=== PATIENT | male | born 1970 | race Caucasian/White ===

== ENCOUNTER 2020-10-19 13:56 | Inpatient (IN) | payer BC ==
[2020-10-19] MEDS ORDERED: Acetaminophen 325 MG Tab PO PRN (17:52)
[2020-10-19] MEDS ORDERED: Acetaminophen/oxyCODONE 325-5 MG Tab PO PRN (18:04)
[2020-10-19] MEDS ORDERED: Meloxicam 7.5 MG Tab PO PRN (18:04)
[2020-10-19] MEDS ORDERED: Cyclobenzaprine 10 MG Tab PO PRN (18:04)
[2020-10-19] MEDS ORDERED: Magnesium Hydroxide 400 MG/5 ML Susp 30 ML Cup PO PRN (18:16)
--- NOTE | 2020-10-19 18:17 | PCM.HP.2 ---
H&P History of Present Illness - General Date of Service: 10/19/20 Admit Problem/Dx: Admission Diagnosis/Problem Admission Diagnosis/Problem History of arthroplasty of left knee Source of Information: Patient History Limitations: Reports: No Limitations - History of Present Illness Initial Comments - Free Text/Narative: Luís is a 49 year old male who is admitted swing bed after a debridement of his knee. Patient had a total knee replacement on the and was discharged home the next day. Patient relates was doing well the first 2 days and then he started having extreme pain in his knee. Was in and out of the house due to pain and states noted that the bandage on his knee had become "bloody". Returned back to [place] and had a large hematoma debrided. Transferred here for swing bed for PT due to his impulsiveness and noncompliance. Patient states pain is much better after the debridement. Denies nausea/vomiting. Has not had BM since Thursday. No abdominal pain. Is ambulating with walker with 50% weight bearing. Duration of Symptoms: Reports: Day(s): Location: Reports: Lower Extremity, Left Quality: Reports: Ache Severity: Mild Improves with: Reports: Medication Left Knee Pain Score (Numeric/FACES): 1 - Related Data Allergies/Adverse Reactions: Allergies Allergy/AdvReac Type Severity Reaction Status Date / Time No Known Allergies Allergy Verified 10/19/20 15:26 Home Medications: Home Meds Lisinopril/Hydrochlorothiazide [Lisinopril-Hctz 20-25 mg Tab] 1 tab PO DAILY 09/13/20 [History] Meloxicam 7.5 mg PO BID PRN 09/13/20 [History] Metoprolol Succinate [Toprol XL 100mg] 100 mg PO DAILY 09/13/20 [History] Venlafaxine [Venlafaxine HCl ER] 300 mg PO DAILY 09/13/20 [History] atorvaSTATin Calcium [Atorvastatin Calcium] 20 mg PO DAILY 09/13/20 [History] lisinopriL [Lisinopril] 20 mg PO DAILY 09/13/20 [History] Aspirin [Aspirin EC] 81 mg PO DAILY 10/19/20 [History] Cyclobenzaprine [Flexeril] 10 mg PO TID PRN 10/19/20 [History] Docusate Sodium [Colace] 100 mg PO BID 10/19/20 [History] Sulfamethoxazole/Trimethoprim [Bactrim Ds Tablet] 1 tab PO BID 10/19/20 [History] oxyCODONE HCl/Acetaminophen [Oxycodone-Acetaminophen 5-325] 1 - 2 tab PO Q4HR PRN 10/19/20 [History] Past Medical History Cardiovascular History: Reports: High Cholesterol, Hypertension Musculoskeletal History: Reports: Arthritis, Osteoarthritis, Other (See Below) Other Musculoskeletal History: carpal tunnel syndrome Neurological History: Reports: CVA, TIA Psychiatric History: Reports: Anxiety, Depression - Infectious Disease History Infectious Disease History: Reports: None - Past Surgical History Musculoskeletal Surgical History: Reports: Other (See Below) Other Musculoskeletal Surgeries/Procedures:: LTKA with return to OR d/t internal suture dehiscence, elbow surgery, wrist surgery, finger amputation Social & Family History - Tobacco Use Tobacco Use Status *Q: Current Every Day Tobacco User H&P Review of Systems - Review of Systems: Review Of Systems: See Below General: Reports: Weakness. Denies: Fever, Chills, Malaise, Fatigue HEENT: Reports: No Symptoms Pulmonary: Denies: Shortness of Breath, Cough Cardiovascular: Denies: Chest Pain, Edema, Lightheadedness Gastrointestinal: Reports: Constipation. Denies: Abdominal Pain, Nausea, Vomiting Genitourinary: Reports: No Symptoms Musculoskeletal: Reports: Leg Pain, Joint Pain Skin: Reports: Other (incision) Psychiatric: Reports: No Symptoms Neurological: Reports: No Symptoms Exam - Exam Exam: See Below - Vital Signs Vital Signs: Last Vital Signs Temp 98.8 F 10/19/20 16:22 Pulse 87 10/19/20 16:22 Resp 16 10/19/20 16:22 BP 132/89 10/19/20 16:22 Pulse Ox 97 10/19/20 16:22 Weight: 227 lb 6.4 oz - Exam General: Alert, Oriented HEENT: Conjunctiva Clear, Mucosa Moist & [place], Posterior Pharynx Clear Neck: Supple Lungs: Clear to Auscultation, Normal Respiratory Effort Cardiovascular: Regular Rate, Regular Rhythm GI/Abdominal Exam: Normal Bowel Sounds, Soft, Non-Tender Extremities: Other (Knee wrapped with scott bandage and ice. Will evaluate incision around dressing change) Skin: Incision Neuro Extensive - Mental Status: Alert, Oriented x3 Psychiatric: Alert Sepsis Event Note - Evaluation Sepsis Screening Result: No Definite Risk - Focused Exam Vital Signs: Vital Signs Temp Pulse Resp BP Pulse Ox 10/19/20 16:22 98.8 F 87 16 132/89 97 - Problem List (1) S/P total knee arthroplasty SNOMED Code(s): 2209781233744, 166354429, 0613385219933 ICD Code: Z96.659 - PRESENCE OF UNSPECIFIED ARTIFICIAL KNEE JOINT Status: Acute Priority: High Current Visit: Yes Qualifiers: Laterality: left Qualified Code(s): Z96.652 - Presence of left artificial knee joint (2) Status post debridement SNOMED Code(s): 156766864, 862105965 ICD Code: Z98.890 - OTHER SPECIFIED POSTPROCEDURAL STATES Status: Acute Priority: High Current Visit: Yes Problem List Initiated/Reviewed/Updated: Yes Orders Last 24hrs: Active Orders 24 hr Category Date Time Status Patient Status [ADT] Routine ADT 10/19/20 17:52 Ordered Oxygen Therapy [RC] PRN Care 10/19/20 17:52 Ordered Up With Assistance [RC] ASDIRECTED Care 10/19/20 17:52 Ordered Vital Signs [RC] Q12HR Care 10/19/20 17:52 Ordered Wound Care [RC] DAILY Care 10/19/20 17:52 Ordered PT Evaluation and Treatment [CONS] Routine Cons 10/19/20 17:52 Ordered Regular Diet [DIET] Diet 10/20/20 Dinner Ordered Acetaminophen [TylenoL] Med 10/19/20 17:52 Ordered 650 mg PO Q4H PRN Acetaminophen/oxyCODONE [Percocet 325-5 MG] Med 10/19/20 18:04 Ordered 1 - 2 tab PO Q4HR PRN Aspirin [Halfprin] Med 10/20/20 08:00 Ordered 81 mg PO DAILY Cyclobenzaprine [Flexeril] Med 10/19/20 18:04 Ordered 10 mg PO TID PRN Docusate Sodium [Colace] Med 10/19/20 20:00 Ordered 100 mg PO BID Lisinopril/Hydrochlorothiazide [Lisinopril-Hctz 20-25 Med 10/20/20 08:00 Ordered mg Tab] 1 tab PO DAILY Magnesium Hydroxide [Milk of Magnesia] Med 10/19/20 18:16 Ordered 30 ml PO BEDTIME PRN Meloxicam [Mobic] Med 10/19/20 18:04 Ordered 7.5 mg PO BID PRN Metoprolol Succinate [Toprol XL] Med 10/20/20 08:00 Ordered 100 mg PO DAILY Sulfamethoxazole/Trimethoprim [Septra DS] Med 10/19/20 20:00 Ordered 1 tab PO BID Venlafaxine [Venlafaxine HCl ER] Med 10/20/20 08:00 Ordered 300 mg PO DAILY atorvaSTATin [Lipitor] Med 10/20/20 08:00 Ordered 20 mg PO DAILY lisinopriL [Prinivil] Med 10/20/20 08:00 Ordered 20 mg PO DAILY Resuscitation Status Routine Resus Stat 10/19/20 17:52 Ordered Medication Orders Acetaminophen (Acetaminophen 325 Mg Tab) 650 mg PO Q4H PRN PRN Reason: Pain (Mild 1-3)/fever Aspirin (Aspirin 81 Mg Tab.Ec) 81 mg PO DAILY [facility] Atorvastatin Calcium (Atorvastatin 20 Mg Tab) 20 mg PO DAILY [facility] Cyclobenzaprine HCl (Cyclobenzaprine 10 Mg Tab) 10 mg PO TID PRN PRN Reason: Spasms Docusate Sodium (Docusate Sodium 100 Mg Cap) 100 mg PO BID [facility] Lisinopril (Lisinopril 20 Mg Tab) 20 mg PO DAILY [facility] Meloxicam (Meloxicam 7.5 Mg Tab) 7.5 mg PO BID PRN PRN Reason: Pain Metoprolol Succinate (Metoprolol Succinate 100 Mg Tab.Er) 100 mg PO DAILY [facility] Non-Formulary Medication (Lisinopril/Hydrochlorothiazide [Lisinopril-Hctz 20-25 Mg Tab]) 1 tab PO DAILY [facility] Non-Formulary Medication (Venlafaxine [Venlafaxine Hcl Er]) 300 mg PO DAILY [facility] Oxycodone/Acetaminophen (Acetaminophen/Oxycodone 325-5 Mg Tab) 1 - 2 tab PO Q4HR PRN PRN Reason: Pain Trimethoprim/Sulfamethoxazole (Sulfamethoxazole/Trimethoprim 800-160 Mg Tab) 1 tab PO BID [facility] Assessment/Plan Comment:: S/P left knee arthroplasty S/P left knee debridement Admitted to swing bed for physical therapy. - Mortality Measure Prognosis:: Good
[2020-10-19] MEDS: Sulfamethoxazole/Trimethoprim 800-160 MG Tab PO SCH (19:33)
[2020-10-19] MEDS: Docusate Sodium 100 MG Cap PO SCH (19:33)
[2020-10-20] MEDS: Hydrochlorothiazide 25 MG Tab PO SCH (07:46)
[2020-10-20] MEDS: atorvaSTATin 20 MG Tab PO SCH (07:46)
[2020-10-20] MEDS: Docusate Sodium 100 MG Cap PO SCH ×2 (07:46→19:44)
[2020-10-20] MEDS: Metoprolol Succinate 100 MG Tab.ER PO SCH (07:46)
[2020-10-20] MEDS: Sulfamethoxazole/Trimethoprim 800-160 MG Tab PO SCH ×2 (07:47→19:44)
[2020-10-20] MEDS: Aspirin 81 MG Tab.EC PO SCH (07:47)
[2020-10-20] MEDS: Lisinopril 20 MG Tab PO SCH (07:47)
[2020-10-20] MEDS: Venlafaxine 75 MG Cap.ER PO SCH (07:48)
[2020-10-20] MEDS ORDERED: Temazepam 15 MG Cap PO PRN (09:30)
[2020-10-21] MEDS: Sulfamethoxazole/Trimethoprim 800-160 MG Tab PO SCH ×2 (07:45→20:44)
[2020-10-21] MEDS: Metoprolol Succinate 100 MG Tab.ER PO SCH (07:45)
[2020-10-21] MEDS: Hydrochlorothiazide 25 MG Tab PO SCH (07:45)
[2020-10-21] MEDS: Docusate Sodium 100 MG Cap PO SCH ×2 (07:45→21:06)
[2020-10-21] MEDS: atorvaSTATin 20 MG Tab PO SCH (07:45)
[2020-10-21] MEDS: Aspirin 81 MG Tab.EC PO SCH (07:45)
[2020-10-21] MEDS: Lisinopril 20 MG Tab PO SCH (07:46)
[2020-10-21] MEDS: Venlafaxine 75 MG Cap.ER PO SCH (07:46)
[2020-10-22] MEDS: Hydrochlorothiazide 25 MG Tab PO SCH (08:03)
[2020-10-22] MEDS: atorvaSTATin 20 MG Tab PO SCH (08:03)
[2020-10-22] MEDS: Aspirin 81 MG Tab.EC PO SCH (08:03)
[2020-10-22] MEDS: Sulfamethoxazole/Trimethoprim 800-160 MG Tab PO SCH ×2 (08:03→21:35)
[2020-10-22] MEDS: Docusate Sodium 100 MG Cap PO SCH ×2 (08:03→21:35)
[2020-10-22] MEDS: Metoprolol Succinate 100 MG Tab.ER PO SCH (08:03)
[2020-10-22] MEDS: Venlafaxine 75 MG Cap.ER PO SCH (08:03)
[2020-10-22] MEDS: Lisinopril 20 MG Tab PO SCH (08:04)
[2020-10-23] MEDS: Venlafaxine 75 MG Cap.ER PO SCH (07:35)
[2020-10-23] MEDS: Lisinopril 20 MG Tab PO SCH (07:35)
[2020-10-23] MEDS: Hydrochlorothiazide 25 MG Tab PO SCH (07:36)
[2020-10-23] MEDS: Sulfamethoxazole/Trimethoprim 800-160 MG Tab PO SCH (07:36)
[2020-10-23] MEDS: atorvaSTATin 20 MG Tab PO SCH (07:36)
[2020-10-23] MEDS: Metoprolol Succinate 100 MG Tab.ER PO SCH (07:36)
[2020-10-23] MEDS: Aspirin 81 MG Tab.EC PO SCH (07:36)
[2020-10-23] MEDS: Docusate Sodium 100 MG Cap PO SCH (10:03)
--- NOTE | 2020-10-24 16:12 | PN ---
DATE: 10/22/2020 S: Luís has been afebrile since being admitted. He wants to go home. He is set to have a followup with orthopedic nurse tomorrow, but he has been seeing Allan here in our facility. He has had stable vital signs. He has been afebrile. O: GENERAL: The patient is pleasant, cooperative, in no distress. NECK: Supple. Veins are flat. LUNGS: Clear. CARDIAC: Tones are regular. ABDOMEN: There is no abdominal pain to palpation. EXTREMITIES: The knee looks fine. There is no significant edema present. ASSESSMENT: 1. STATUS POST KNEE DEBRIDEMENT FOR HEMATOMA. 2. STATUS POST TOTAL KNEE REPLACEMENT. 3. HYPERTENSION. 4. HYPERLIPIDEMIA. P: The patient clinically looks well. He appears to be much better. I think if he is stable, we may be able to get him home tomorrow. He has followup with Ortho in a week. EMILY/ALEXANDER /[id number]
--- NOTE | 2020-10-24 16:12 | DISCH ---
ADMISSION DIAGNOSES: 1. Status post total knee arthroplasty debridement. 2. Hypertension. 3. Hyperlipidemia. DISCHARGE DIAGNOSIS: 1. STATUS POST TOTAL KNEE ARTHROPLASTY DEBRIDEMENT. 2. HYPERTENSION. 3. HYPERLIPIDEMIA. HISTORY: The patient is a 49-year-old male who underwent total knee replacement. He subsequently had increase in pain, swelling, and erythema. He had a debridement, which are noted to be I believe mainly just some hematoma in the surgical bed. He ultimately was kept overnight, and Dr. Garcia felt he needed some ongoing cares with physical therapy in our facility, and he was sent here for swing bed placement. HOSPITAL COURSE: The patient was fine while here. He really had no complaints of pain. He is 50% weightbear. His dressings have been changed regularly, and PT has been seeing him. He has had no issues with signs of infection and overall has done quite well. He is ready for discharge and will be doing outpatient PT. He does have followup next week with Ortho in [place]. COMPLICATIONS: During his stay were none. CONSULTATIONS: Physical Therapy. DISPOSITION: Discharged home. The patient is instructed on wound cares. Followup appointment in [place] and to continue his oral Bactrim, which was given by Dr. Garcia prior to his discharge from [facility]. EMILY/ALEXANDER /[id number]
== END 2020-10-23 10:30 | disposition home or self-care (01) | DRG 862 ==
LOC: UNDOADMIN 15:59 → CC.MS 15:59
PROVIDERS: ADMIT Family Medicine; ATTEND Family Medicine
DX: Z47.1 Aftercare following joint replacement surgery (principal); Z96.652 Presence of left artificial knee joint; E78.00 Pure hypercholesterolemia, unspecified; I10 Essential (primary) hypertension; M19.90 Unspecified osteoarthritis, unspecified site; F41.9 Anxiety disorder, unspecified; F32.9 Major depressive disorder, single episode, unspecified; F17.210 Nicotine dependence, cigarettes, uncomplicated; E78.5 Hyperlipidemia, unspecified; Z79.899 Other long term (current) drug therapy; Z86.73 Personal history of transient ischemic attack (TIA), and cerebral infarction without residual deficits
CPT/HCPCS: 97016-GP; 97110-GP; 97116-GP; 97161-GP; A9270-GY

== ENCOUNTER 2024-11-17 06:37 | Emergency (ER) | payer OTHER, BC ==
[2024-11-17] MEDS: Lidocaine 1% with EPINEPHrine 1:100,000 20 ML MDV INJECT ONE (07:26)
[2024-11-17 07:48] LABS: BASOPHILS ABSOLUTE AUTO 0.02 10^3/uL (0.00-0.50); BASOPHILS PERCENT AUTO 0.2 % (0-1); EOSINOPHILS ABSOLUTE AUTO 0.11 10^3/uL (0.00-1.50); EOSINOPHILS PERCENT AUTO 1.3 % (0-6); IMMATURE GRAN ABSOLUTE AUTO 0.01 10^3/uL (0.00-0.49); IMMATURE GRAN PERCENT AUTO 0.1 % (0.0-4.9); LYMPHOCYTES ABSOLUTE AUTO 1.46 10^3/uL (0.60-5.00); LYMPHOCYTES PERCENT AUTO 17.8 % (24-44); MONOCYTES ABSOLUTE AUTO 0.90 10^3/uL (0.00-1.50); MONOCYTES PERCENT AUTO 11.0 % (0-10); NEUTROPHILS ABSOLUTE AUTO 5.71 x10^3/uL (1.80-8.00); NEUTROPHILS PERCENT AUTO 69.6 % (41-71); PLATELET COUNT,PLT 277 10^3/uL (150-400); RED BLOOD CELL COUNT 4.41 x10^6/uL (4.50-6.00); WHITE BLOOD CELL COUNT,WBC 8.2 10^3/uL (4.0-11.0)
[2024-11-17 08:33] LABS: ALANINE AMINOTRANSFERASE,ALT 32.0 U/L (12-78); ASPARTATE AMNIOTRANSFERASE,AST 20.0 U/L (15-37); BILIRUBIN TOTAL 0.7 mg/dL (0.0-1.0); BLOOD UREA NITROGEN,BUN 31.0 mg/dL (7-18); CARBON DIOXIDE,CO2 27.0 mmol/L (21-32); CREATININE 1.3 mg/dL (0.7-1.3); EST CRCL DRUG DOSING (CG) 58.62 mL/min; GLUCOSE RANDOM 132.0 mg/dL (75-99); POTASSIUM,K 5.9 mEq/L (3.5-5.0); PROTEIN TOTAL,TP 8.2 g/dL (6.4-8.2)
[2024-11-17 08:39] LABS: CHLORIDE,CL 99.0 mEq/L (98-106); ESTIMATED GFR 65.0 mL/min (>=60); SODIUM,NA 135.0 mEq/L (136-145)
[2024-11-17] MEDS: Bacitracin Oint 1 GM U/D Packet TOP ONE ×2 (09:00→10:20)
[2024-11-17] MEDS: Bacitracin Oint 1 GM U/D Packet ONE (10:20)
[2024-11-17 10:25] VITALS: BP 115/79; PULSE 98
== END 2024-11-17 08:54 | disposition home or self-care (01) ==
LOC: CC.ED 06:37
DX: S41.111A Laceration without foreign body of right upper arm, initial encounter (principal); E78.00 Pure hypercholesterolemia, unspecified; I10 Essential (primary) hypertension; Z79.899 Other long term (current) drug therapy; Z79.82 Long term (current) use of aspirin; Z86.73 Personal history of transient ischemic attack (TIA), and cerebral infarction without residual deficits; F17.210 Nicotine dependence, cigarettes, uncomplicated; W11.XXXA Fall on and from ladder, initial encounter; Y93.89 Activity, other specified; Y99.0 Civilian activity done for income or pay
CPT/HCPCS: 12006; 36415; 73060-RT; 80053; 83735; 84484; 85025; 86850; 86900; 86901; 93005; 99284; J0690; J2004